=== PATIENT | female | born 1945 | race Caucasian/White ===

== ENCOUNTER → 2016-05-15 | Outpatient (CLI) | payer OTHER, BC ==
[~2016-05-15] MED LIST: ADULT LOW DOSE81 MG PO; ATENOLOL PO; CALCIUM OYSTER500 MG PO; DOXYCYCLINE HYC20 MG PO; LIPITOR80 MG PO; LISINOPRIL10 MG PO; LISINOPRIL20 MG; MULTIVITAMINS PO; NIASPAN 500 MG500 M1 PO; VITAMIN D1000 UNI1 PO
--- NOTE | ~2016-05-15 | 24HR ---
[facility] [place] [address] 24 HR ELECTROCARDIOGRAM REPORT Name: SEJAL AC Room #: REG [facility]#: [id number] Admission: 05/15/16 Attend Phys: Donte Mendoza MD Discharge: Date of : 41 Date of Service: 05/15/16 1115 Report #: [id number] THIS REPORT FOR: //name// [facility] Test Date: 2016-05-15 Test Time: 11:15:00 Pat Name: SEJAL AC Department: Room: Gender: Supervisor Frame Assembly: : 1945 Requested By: Donte Mendoza Order Number: [id number] Reading MD: Yon Levin Interpretive Statements 1. Study duration 48hours and technical quality acceptable 2. Predominant rhythm sinus with an average heart rate of 69bpm, range 54-96 bpm. Longest RR interval 1.7sec. 3. Occasional atrial premature complexes, rare atrial couplets. No atrial fibrillation or atrial flutter. No heart block. No supraventricular tachycardia. 4. Frequent premature ventricular complexes; periods of ventricular bigeminy and trigeminy. Occasional ventricular couplets and triplets. No sustained episodes of ventricular tachycardia. Ventricular ectopy represtented 11% of QRS complexes. 5. Symptoms reported in the diary ("dorian in chest") generally corresponded to premature ventricular complexes. Electronically Signed On 05-20-2016 8:02:55 [employer] by Yon Levin [email or web address] <ELECTRONICALLY SIGNED> By: Yon Levin MD, [facility] 05/20/16 0802 1115 1115 Yon Levin MD, [facility] /EPI
== END ==
LOC: CV 10:37
DX: I49.3 Ventricular premature depolarization (principal)

== ENCOUNTER → 2019-10-26 | Outpatient (CLI) | payer OTHER, BC | LOC: SJCVCIMAG 09:47 | PROVIDERS: ATTEND Internal Medicine Cardiovascular Disease | DX: I08.8 Other rheumatic multiple valve diseases (principal); I11.9 Hypertensive heart disease without heart failure; I25.810 Atherosclerosis of coronary artery bypass graft(s) without angina pectoris; E11.9 Type 2 diabetes mellitus without complications; E78.00 Pure hypercholesterolemia, unspecified; R60.9 Edema, unspecified; E78.5 Hyperlipidemia, unspecified; Z79.82 Long term (current) use of aspirin; Z79.899 Other long term (current) drug therapy; Z82.49 Family history of ischemic heart disease and other diseases of the circulatory system; Z95.1 Presence of aortocoronary bypass graft; Z87.891 Personal history of nicotine dependence ==

== ENCOUNTER → 2020-04-22 | Outpatient (CLI) | payer OTHER, BC | LOC: SJCVC 13:13 | PROVIDERS: ATTEND Internal Medicine Cardiovascular Disease | DX: R07.2 Precordial pain (principal); I25.10 Atherosclerotic heart disease of native coronary artery without angina pectoris; E11.9 Type 2 diabetes mellitus without complications; E78.5 Hyperlipidemia, unspecified; I10 Essential (primary) hypertension; Z87.891 Personal history of nicotine dependence; Z72.89 Other problems related to lifestyle; Z79.82 Long term (current) use of aspirin; Z79.899 Other long term (current) drug therapy; Z88.2 Allergy status to sulfonamides ==

== ENCOUNTER → 2020-05-23 | Outpatient (CLI) | payer OTHER, BC | LOC: SJCVCIMAG 08:44 | PROVIDERS: ATTEND Internal Medicine Cardiovascular Disease | DX: I08.8 Other rheumatic multiple valve diseases (principal); R00.0 Tachycardia, unspecified; I44.0 Atrioventricular block, first degree; I49.3 Ventricular premature depolarization; I25.10 Atherosclerotic heart disease of native coronary artery without angina pectoris; I11.9 Hypertensive heart disease without heart failure; E78.00 Pure hypercholesterolemia, unspecified; E11.9 Type 2 diabetes mellitus without complications; I73.9 Peripheral vascular disease, unspecified; Z95.1 Presence of aortocoronary bypass graft; Z79.82 Long term (current) use of aspirin; Z79.899 Other long term (current) drug therapy; Z87.891 Personal history of nicotine dependence ==

== ENCOUNTER → 2020-07-22 | Outpatient (CLI) | payer OTHER, BC | LOC: SJCVC 10:15 | PROVIDERS: ATTEND Internal Medicine Cardiovascular Disease | DX: I25.810 Atherosclerosis of coronary artery bypass graft(s) without angina pectoris (principal); E78.00 Pure hypercholesterolemia, unspecified; R60.9 Edema, unspecified; I12.9 Hypertensive chronic kidney disease with stage 1 through stage 4 chronic kidney disease, or unspecified chronic kidney disease; E11.22 Type 2 diabetes mellitus with diabetic chronic kidney disease; N18.9 Chronic kidney disease, unspecified; E78.5 Hyperlipidemia, unspecified; Z82.49 Family history of ischemic heart disease and other diseases of the circulatory system; Z87.891 Personal history of nicotine dependence; Z79.82 Long term (current) use of aspirin; Z79.899 Other long term (current) drug therapy; Z95.1 Presence of aortocoronary bypass graft ==

== ENCOUNTER → 2021-01-22 | Outpatient (CLI) | payer OTHER, BC | LOC: SJCVC 09:35 | PROVIDERS: ATTEND Internal Medicine Cardiovascular Disease | DX: I49.8 Other specified cardiac arrhythmias (principal); I25.10 Atherosclerotic heart disease of native coronary artery without angina pectoris; I10 Essential (primary) hypertension; E78.00 Pure hypercholesterolemia, unspecified; R60.9 Edema, unspecified; E11.22 Type 2 diabetes mellitus with diabetic chronic kidney disease; I12.9 Hypertensive chronic kidney disease with stage 1 through stage 4 chronic kidney disease, or unspecified chronic kidney disease; N18.9 Chronic kidney disease, unspecified; K44.9 Diaphragmatic hernia without obstruction or gangrene; E78.5 Hyperlipidemia, unspecified; I49.3 Ventricular premature depolarization; Z79.82 Long term (current) use of aspirin; Z79.899 Other long term (current) drug therapy; Z88.2 Allergy status to sulfonamides; Z82.49 Family history of ischemic heart disease and other diseases of the circulatory system; Z87.891 Personal history of nicotine dependence ==

== ENCOUNTER → 2021-02-12 | Outpatient (CLI) | payer OTHER, BC | LOC: SJCVC 08:49 | PROVIDERS: ATTEND Internal Medicine Cardiovascular Disease | DX: I25.10 Atherosclerotic heart disease of native coronary artery without angina pectoris (principal) ==